=== PATIENT | female | born 1970 | race Two or more races ===

== ENCOUNTER 2019-02-17 16:42 | Emergency (ER) | payer OTHER ==
[~2019-02-17] VITALS: Ht 167.6 cm; Wt 97.5 kg
[2019-02-17 16:49] VITALS: BP 140/94
[2019-02-17] MEDS ORDERED: CHOL100044 PO (17:05)
[2019-02-17] MEDS ORDERED: ONDANSETRON HCL/PF - ER 4 MG/2 ML VIAL IV ONE (17:30)
[2019-02-17] MEDS ORDERED: IBUPROFEN 600 MG TABLET PO ONE ×2 (17:55→18:00)
[2019-02-17] MEDS ORDERED: ONDANSETRON HCL/PF 4 MG/2 ML VIAL ONE (17:55)
[2019-02-17] MEDS ORDERED: ONDANSETRON 4 MG TAB.RAPDIS ONE (17:58)
[2019-02-17] MEDS ORDERED: ONDANSETRON 4 MG TAB.RAPDIS SL ONE (18:30)
== END 2019-02-17 19:21 | disposition home or self-care (01) ==
LOC: ER 16:44
DX: S80.12XA Contusion of left lower leg, initial encounter (principal); S40.022A Contusion of left upper arm, initial encounter; S30.0XXA Contusion of lower back and pelvis, initial encounter; V49.59XA Passenger injured in collision with other motor vehicles in traffic accident, initial encounter; Y93.89 Activity, other specified; Y92.488 Other paved roadways as the place of occurrence of the external cause; Y99.8 Other external cause status
CPT/HCPCS: 71045; 99283; J2405; Q0162

== ENCOUNTER 2020-06-08 17:16 | Inpatient (IN) | payer OTHER ==
[~2020-06-08] VITALS: Ht 167.6 cm; Wt 110.2 kg
[~2020-06-08 17:16] MED LIST: CHOL100044 PO
[2020-06-08 18:21] LABS: BASOPHILS % (AUTO) 0.9 % (0.0-2.0); EOSINOPHILS % (AUTO) 2.1 % (0.0-6.0); HEMATOCRIT 35 % (33-45); HEMOGLOBIN 11.8 g/dL (11.5-14.8); LYMPHOCYTES # (AUTO) 1.3 /CMM (0.8-4.8); LYMPHOCYTES % (AUTO) 26.7 % (20.0-44.0); MEAN CORPUSCULAR HGB CONC 34 g/dl (31.0-36.0); MEAN CORPUSCULAR VOLUME 86 fL (82-100); MONOCYTES # (AUTO) 0.6 /CMM (0.1-1.30); MONOCYTES % (AUTO) 11.5 % (2.0-12.0); NEUTROPHILS # (AUTO) 2.8 /CMM (1.8-8.9); NEUTROPHILS % (AUTO) 58.8 % (43.0-81.0); PLATELET COUNT (AUTO) 195 /CMM (150-450); RED BLOOD CELL COUNT(AUTO) 4.05 MIL/uL (4.0-5.2); WHITE BLOOD COUNT (AUTO) 4.8 K/uL (4.3-11.0)
--- NOTE | 2020-06-08 18:25 | NUR ---
BIBFAMILY FROM HOME TO ER BED 7. AAOX4. NOT IN RESP DISTRESS, BREATHING EVEN AND UNLABORED. AMBULATORY. BROUGHT IN FOR CHEST PAIN THAT HAS BEEN GOING ON FOR THE PAST 2 DAYS. PT RATES THE PAIN 5/10 PRESSURE MID STERNAL RADIATING TO THE BACK. DAUGTHER REPORTS THAT SHE WAS DX WITH PNA 3 WEEKS AGO AND COVID POSITIVE X 15 DAYS. PT IS SATTING @ 99% ON RA. WAS AT THE BEDSIDE FOR EVAL. ORDERS RECEIVED, NOTED AND CARRIED OUT. IV LINE ESTABLISHED ON RFA 20G, BLOOD DRAWN AND GIVEN TO VOCATIONAL SERVICES SPECIALIST.
[2020-06-08 18:33] LABS: CALCIUM, SERUM 8.5 mg/dL (8.5-10.1); CREATININE 0.6 mg/dL (0.6-1.3); POTASSIUM 3.5 mmol/L (3.5-5.1)
--- NOTE | 2020-06-08 18:33 | NUR ---
Avila gracia in ED - 06/08/20 at 1834 by MOHIT RECEIVED A CALL FROM MILIND AT [facility] THAT PT IS MRSA POSOTIVE
[2020-06-08 18:46] LABS: ALBUMIN 3.4 g/dL (3.4-5.0); BILIRUBIN,TOTAL 0.5 mg/dL (0.2-1.0); TOTAL PROTEIN, SERUM 7.6 g/dL (6.4-8.2)
[2020-06-08] MEDS ORDERED: CEFEPIME 1 GM in IV D5W 50 ML IV SCH (19:00)
[2020-06-08] MEDS ORDERED: VANCOMYCIN 1 GM in IV D5W 250 ML IV ONE (19:00)
[2020-06-08] MEDS ORDERED: CEFEPIME 1 GM VIAL ONE (19:06)
[2020-06-08] MEDS ORDERED: IV NS 0.9% 250 ML IV ONE (19:18)
[2020-06-08] MEDS ORDERED: CT SWABBABLE VALVE TRANS SET 1 EA INFUS.SET MC ONE (19:18)
[2020-06-08] MEDS ORDERED: IOHEXOL-350 100 ML VIAL IV ONE (19:18)
[2020-06-08] MEDS ORDERED: VANCOMYCIN 1 GM VIAL ONE ×2 (20:15→22:27)
[2020-06-08 21:56] LABS: C-REACTIVE PROTEIN 8.8 mg/dL (0.0-0.9)
[2020-06-08] MEDS ORDERED: MAG HYDROX/AL HYDROX/SIMETH 30 ML UDC PO PRN (22:00)
[2020-06-08] MEDS ORDERED: ONDANSETRON HCL/PF 4 MG/2 ML VIAL IVP PRN (22:00)
[2020-06-08] MEDS ORDERED: MAGNESIUM HYDROXIDE 30 ML UDC PO PRN (22:00)
[2020-06-08] MEDS ORDERED: ACETAMINOPHEN 325 MG TABLET PO PRN (22:00)
[2020-06-08] MEDS ORDERED: HYDROCODONE/APAP 5/325MG TABLET PO PRN (22:00)
[2020-06-08] MEDS ORDERED: Z GUARD REMEDY 2 OZ OINT TP PRN (22:00)
[2020-06-08] MEDS ORDERED: ZOLPIDEM TARTRATE 5 MG TABLET PO PRN (22:00)
--- NOTE | 2020-06-08 22:01 | NUR ---
CANDELARIA, PT'S DAUGHTER
[2020-06-08] MEDS ORDERED: VANCOMYCIN 1 GM in IV D5W 250ml IV ONE (22:30)
[2020-06-08] MEDS ORDERED: ENOXAPARIN SODIUM 60 MG/0.6 ML DISP.SYRIN SQ ONE (22:33)
[2020-06-08] MEDS: ENOXAPARIN SODIUM 40 MG/0.4 ML DISP.SYRIN SQ SCH (22:35)
--- NOTE | 2020-06-08 22:50 | NUR ---
PT REPOSITIONED TO THE LEFT FOR COMFORT. PT HAS NO MEDICAL COMPLAINTS AT THIS TIME. WILL CONTINUE TO MONITOR PT
[2020-06-09] MEDS ORDERED: PIPERACILLIN /TAZOBACTAM 4.5 G in IV D5W 50 ML IV SCH ×2
--- NOTE | 2020-06-09 00:28 | NUR ---
SPOKE W/ [facility], PER PHARMACY, AMY TO GIVE ROCEPHIN 4.5 GM IV FOR 30 MINS NOW.
[2020-06-09] MEDS ORDERED: CEFTRIAXONE 500 MG VIAL ONE (00:30)
[2020-06-09] MEDS ORDERED: CEFTRIAXONE 1 G VIAL ONE ×2 (00:30→22:03)
[2020-06-09] MEDS ORDERED: CEFTRIAXONE 1GM BAG (ER ONLY) 50 ML IV ONE (00:30)
[2020-06-09] MEDS: PIPERACILLIN /TAZOBACTAM 4.5 G in IV D5W 50 ML IV SCH ×2 (01:07→07:15)
[2020-06-09] MEDS: IV NS 0.9% 1,000 ML IV PRN ×2 (04:00→22:28)
--- NOTE | 2020-06-09 04:54 | NUR ---
PT REPOSITIONED ON HER RIGHT SIDE FOR COMFORT. PT HAS NO MEDICAL COMPLAINTS AT THIS TIME
[2020-06-09 05:42] LABS: BASOPHILS % (AUTO) 0.4 % (0.0-2.0); EOSINOPHILS % (AUTO) 1.6 % (0.0-6.0); HEMATOCRIT 33 % (33-45); HEMOGLOBIN 11.3 g/dL (11.5-14.8); LYMPHOCYTES # (AUTO) 1.3 /CMM (0.8-4.8); LYMPHOCYTES % (AUTO) 26.3 % (20.0-44.0); MEAN CORPUSCULAR HGB CONC 34 g/dl (31.0-36.0); MEAN CORPUSCULAR VOLUME 86 fL (82-100); MONOCYTES # (AUTO) 0.6 /CMM (0.1-1.30); NEUTROPHILS # (AUTO) 2.9 /CMM (1.8-8.9); NEUTROPHILS % (AUTO) 59.7 % (43.0-81.0); PLATELET COUNT (AUTO) 177 /CMM (150-450); RED BLOOD CELL COUNT(AUTO) 3.89 MIL/uL (4.0-5.2); WHITE BLOOD COUNT (AUTO) 4.8 K/uL (4.3-11.0)
[2020-06-09 05:58] LABS: D-DIMER 0.83 mg/L(FEU (0.17-0.50)
[2020-06-09 06:01] LABS: CALCIUM, SERUM 8.2 mg/dL (8.5-10.1); CREATININE 0.7 mg/dL (0.6-1.3); MAGNESIUM 2.1 mg/dL (1.8-2.4); PHOSPHORUS 2.9 mg/dL (2.5-4.9); POTASSIUM 3.5 mmol/L (3.5-5.1)
--- NOTE | 2020-06-09 06:13 | NUR ---
PT REPOSITIONED ON HER LEFT SIDE FOR COMFORT. VSS. NAD NOTED.
[2020-06-09 06:15] LABS: THYROID STIMULATING HORMONE 0.642 uIU/mL (0.358-3.74)
--- NOTE | 2020-06-09 07:15 | NUR ---
FRANCESCO DONALDSON CHANGED TIME TO 0900AM.
[2020-06-09] MEDS ORDERED: DEXAMETHASONE SOD PHOSPHATE 6 MG in IV D5W 50 ML IV SCH (09:00)
[2020-06-09] MEDS: DEXAMETHASONE SOD PHOSPHATE 10 MG/ML VIAL IV SCH (09:05)
[2020-06-09] MEDS: CHOLECALCIFEROL 1,000 UNIT TABLET (VIT D3) PO SCH (09:06)
[2020-06-09] MEDS: PIPERACILLIN /TAZOBACTAM 3.375 G in IV D5W 100 ML IV SCH ×2 (09:20→17:00)
[2020-06-09] MEDS ORDERED: VANCOMYCIN 1.5 GM in IV D5W 500 ML IV SCH (16:00)
--- NOTE | 2020-06-09 19:16 | NUR ---
ASSUMED CARE. PT SITTING UP IN BED TALKING TO DAUGHTER. PT DENIES PAIN OR DISCOMFORT AT THIS TIME, NO ACUTE DISTRESS NOTED, RESP EVEN AND UNLABORED. CALL LIGHT WITHIN REACH. WILL CONTINUE TO MONITOR PT CLOSELY.
--- NOTE | 2020-06-09 20:29 | NUR ---
Avila gracia in EDM - 06/09/20 at 2028 by RENU REPORT CALLED TO DESHAWN SLOAN WILL TRANSPORT PT VIA ACLS PROTOCOL.
--- NOTE | 2020-06-09 20:29 | NUR ---
REPORT CALLED TO RADIOLOGIC TECHNOLOGY TEACHERRIKKI MONTANO. WILL TRANSPORT PT VIA ACLS PROTOCOL.
--- NOTE | 2020-06-09 20:40 | NUR ---
ENVIRONMENTAL ENGINEERING PROFESSOR OPENING NOTES RECEIVED PATIENT FROM ER VIA TOO, ALERT AND ORIENTED X 4 AMBULATORY. VIETNAMESE SPEAKING VERBALLY RESPONSIVE AND ABLE TO FOLLOW DIRECTIONS. BREATHING REGULAR AND UNLABORED ON ROOM AIR, LATEST SPO2 98%. LEFT HAND G22 IV LINE INTACT AND PATENT, FLUSHING WELL WITH NO BLEEDING OR S/S OF INFILTRATION NOTED. BODY ASSESSMENT DONE, SKIN INTACT CLEAN AND DRY. ATTACHED ON CARDIAC MONITORING WITH NORMAL SINUS RHYTHM AT 80bmp. DENIES SUICIDAL IDEATION OR PAIN/DISCOMFORT AT THIS TIME. PATIENT DOESN'T HAVE AN ADVANCE DIRECTIVES AND WISHED TO BE FULL CODE. BED LOW AND LOCKED ON SEMI FOWLERS POSITION. CALL LIGHT IN REACH. MAINTAINED ON ISOLATION FOR COVID19, PROPER HAND WASHING AND ISOLATION PRECAUTIONS OBSERVED. WILL CONTINUE TO MONITOR.
[2020-06-09 20:45] VITALS: BP 147/81
[2020-06-09] MEDS: ENOXAPARIN SODIUM 40 MG/0.4 ML DISP.SYRIN SQ SCH (21:40)
[2020-06-09] MEDS: CEFTRIAXONE 1 G in IV D5W 50 ML IV SCH (22:17)
[2020-06-10] VITALS: BP 137/85
[2020-06-10 04:00] VITALS: BP 115/74
--- NOTE | 2020-06-10 06:45 | NUR ---
ELECTRIC MOTOR REPAIR SUPERVISOR CLOSING NOTES PATIENT IN BED, ALERT AND ORIENTED X 4. AFEBRILE WITH NO S/S OF DISTRESS OBSERVED. LEFT HAND G22 IV LINE PATENT AND FLUSHING WELL. MAINTAINED ON CARDIAC MONITORING WITH NORMAL SINUS RHYTHM AT 89bmp. NO COMPLAINTS OF PAIN/DISCOMFORT REPORTED AT THIS TIME. BED LOW AND LOCKED ON SEMI FOWLERS POSITION. CALL LIGHT IN REACH. WILL ENDORSE TO MORNING SHIFT FOR TONY.
[2020-06-10 07:25] LABS: BASOPHILS % (AUTO) 0.1 % (0.0-2.0); HEMATOCRIT 33 % (33-45); LYMPHOCYTES # (AUTO) 0.8 /CMM (0.8-4.8); LYMPHOCYTES % (AUTO) 14.8 % (20.0-44.0); MEAN CORPUSCULAR HGB CONC 34 g/dl (31.0-36.0); MEAN CORPUSCULAR VOLUME 86 fL (82-100); MONOCYTES # (AUTO) 0.4 /CMM (0.1-1.30); MONOCYTES % (AUTO) 8.2 % (2.0-12.0); NEUTROPHILS # (AUTO) 4.1 /CMM (1.8-8.9); NEUTROPHILS % (AUTO) 76.9 % (43.0-81.0); PLATELET COUNT (AUTO) 214 /CMM (150-450); WHITE BLOOD COUNT (AUTO) 5.3 K/uL (4.3-11.0)
--- NOTE | 2020-06-10 07:30 | NUR ---
TELE/RN OPENING NOTES RECEIVED PATIENT IN BED. AFEBRILE. A/O X4/. AMBULATORY. NO SIGNS OF RESPIRATORY DISTRESS. IV ON L HAND G22 INTACT, NS @75 ML/HR. TELE READING NSR. SAFETY PRECAUTIONS APPLIED. BED IN LOWEST POSITION, LOCKED. SIDE RAILS UP X 2. CALL LIGHT WITHIN REACH. WILL CONTINUE TO MONITOR.
--- NOTE | 2020-06-10 07:40 | NUR ---
FORKLIFT SUPERVISOR OPENING NOTES PATIENT A/O X4. WITH NO SIGNS OF DISTRESS ROOM AIR. IV ON L HAND #22G INTACT, NS @75 ML/HR. TELE READING NSR. SAFETY PRECAUTIONS APPLIED. BED IN LOWEST POSITION, LOCKED. SIDE RAILS UP X 2. CALL LIGHT WITHIN REACH. WILL CONTINUE TO MONITOR.
[2020-06-10 07:54] LABS: CALCIUM, SERUM 8.8 mg/dL (8.5-10.1); CREATININE 0.7 mg/dL (0.6-1.3); POTASSIUM 3.9 mmol/L (3.5-5.1)
[2020-06-10 08:00] VITALS: BP 118/76
[2020-06-10] MEDS: CHOLECALCIFEROL 1,000 UNIT TABLET (VIT D3) PO SCH (10:47)
[2020-06-10] MEDS: DEXAMETHASONE SOD PHOSPHATE 10 MG/ML VIAL IV SCH (10:48)
[2020-06-10 12:00] VITALS: BP 126/74
[2020-06-10 16:00] VITALS: BP 137/70
--- NOTE | 2020-06-10 19:25 | NUR ---
LOZENGE DOUGH MIXER OPENING NOTES PATIENT AWAKE IN BED. A/OX4. PRIMARY LANGUAGE KITTITIAN; TRANSLATION PROVIDED BY DAUGHTER YOU VIA PHONE. ON RA; NO S/S OF ACUTE RESPIRATORY DISTRESS; BREATHING IS EVEN AND UNLABORED. NO C/O PAIN. TELE MONITOR READING SINUS RHYTHM. IV PRESESNT ON LEFT HAND, SIZE 22, INTACT & PATENT WITH NS RUNNING AT 75 ML/HR. CONTACT/DROPLET PRECAUTIONS IN PLACE FOR COVID 19. SAFETY MEASURES IN PLACE AND PATIENT'S NEEDS MET. BED LOCKED, SIDE RAILS X2, CALL LIGHT WITHIN REACH. WILL CONTINUE TO MONITOR.
--- NOTE | 2020-06-10 19:52 | NUR ---
RESIN MIXER CLOSING NOTES PATIENT A/O X4. WITH NO SIGNS OF DISTRESS ROOM AIR. IV ON L HAND #22G INTACT, NS @75 ML/HR. TELE READING NSR. PATIENT KEPT CLEAN AND DRY. ALL NEEDS, CARE, TREATMENT,AND MEDICATIONS WERE ADMINISTERED ANTICIPATED PER ORDER. SAFETY MEASURES ARE APPLIED, BED IS IN LOW POSITION SIDE RAILS UP X 2. CALL LIGHT WITHIN REACH WILL ENDORSE TO THE DIRECTOR SALES SUPPORT NURSE.
[2020-06-10 20:00] VITALS: BP 117/59
[2020-06-10] MEDS: ENOXAPARIN SODIUM 40 MG/0.4 ML DISP.SYRIN SQ SCH (21:19)
[2020-06-10] MEDS: CEFTRIAXONE 1 G in IV D5W 50 ML IV SCH (21:19)
[2020-06-11] VITALS: BP 134/72
[2020-06-11 04:00] VITALS: BP 134/71
[2020-06-11 06:00] VITALS: BP 134/71
[2020-06-11 07:07] LABS: BASOPHILS % (AUTO) 0.1 % (0.0-2.0); EOSINOPHILS % (AUTO) 0.1 % (0.0-6.0); HEMATOCRIT 34 % (33-45); HEMOGLOBIN 11.3 g/dL (11.5-14.8); LYMPHOCYTES # (AUTO) 1.2 /CMM (0.8-4.8); LYMPHOCYTES % (AUTO) 17.8 % (20.0-44.0); MEAN CORPUSCULAR HGB CONC 33 g/dl (31.0-36.0); MEAN CORPUSCULAR VOLUME 87 fL (82-100); MONOCYTES # (AUTO) 0.4 /CMM (0.1-1.30); MONOCYTES % (AUTO) 5.6 % (2.0-12.0); NEUTROPHILS # (AUTO) 5.2 /CMM (1.8-8.9); NEUTROPHILS % (AUTO) 76.4 % (43.0-81.0); PLATELET COUNT (AUTO) 225 /CMM (150-450); RED BLOOD CELL COUNT(AUTO) 3.89 MIL/uL (4.0-5.2); WHITE BLOOD COUNT (AUTO) 6.8 K/uL (4.3-11.0)
--- NOTE | 2020-06-11 07:11 | NUR ---
CUSTOMS COMPLIANCE DIRECTOR CLOSING NOTES PATIENT SLEEPING, AWAKENS TO NAME. A/OX4. ON RA; NO S/S OF ACUTE RESPIRATORY DISTRESS; BREATHING IS EVEN AND UNLABORED. NO S/S PAIN NOTED. TELE MONITOR READING SINUS RHYTHM. IV PRESESNT ON LEFT HAND, SIZE 22, INTACT & PATENT, HEP LOCKED. SAFETY MEASURES IN PLACE AND PATIENT'S NEEDS MET. BED LOCKED, SIDE RAILS X2, CALL LIGHT WITHIN REACH. WILL ENDORSE TO DAY SHIFT RN PLAN OF CARE.
[2020-06-11 07:31] LABS: CALCIUM, SERUM 8.6 mg/dL (8.5-10.1); CREATININE 0.6 mg/dL (0.6-1.3); MAGNESIUM 2.3 mg/dL (1.8-2.4)
--- NOTE | 2020-06-11 07:36 | NUR ---
PAPER PRODUCTS MACHINE OPERATOR OPENING NOTES RECEIVED PATIENT RESTING IN BED. A/OX4. PRIMARY LANGUAGE ARABIC WITH SOME LIMITED OCCITAN, TRANSLATION PROVIDED BY DAUGHTER YOU VIA PHONE. PATIENT IS ON ON RA WITH O2 SAT 97-98% ON RA. NO S/S OF ACUTE RESPIRATORY DISTRESS; BREATHING IS EVEN AND UNLABORED. NO C/O PAIN OR DISCOMFORT AT THIS TIME. TELE MONITOR READING SINUS RHYTHM. IV PRESESNT ON LEFT HAND #22, PATENT AND INTACT INFUSING NS AT 75 ML/HR. CONTACT/DROPLET PRECAUTIONS IN PLACE FOR COVID 19. ALL SAFETY MEASURES IN PLACE, PATIENT'S NEEDS MET. BED IS AT LOW POSITION AND LOCKED WITH SIDE RAILS UP X2 AND CALL LIGHT WITHIN REACH. WILL CONTINUE TO MONITOR.
[2020-06-11 08:00] VITALS: BP 123/68
[2020-06-11] MEDS ORDERED: DEXA4TAB PO (09:13)
[2020-06-11] MEDS ORDERED: LEVO500T90 PO (09:15)
[2020-06-11] MEDS: DEXAMETHASONE SOD PHOSPHATE 10 MG/ML VIAL IV SCH (09:36)
[2020-06-11] MEDS: CHOLECALCIFEROL 1,000 UNIT TABLET (VIT D3) PO SCH (09:36)
[2020-06-11 12:00] VITALS: BP 120/72
--- NOTE | 2020-06-11 17:42 | NUR ---
DISCHARGE NOTES DISCHARGE ORDER RECEIVED FROM DR. WINSTON. PATIENT IN STABLE CONDITION FOR DC. PATIENT AND FAMILY INFORMED OF DISCHARGE TO HOME/SELF-CARE. MEDICATION DISCHARGE INSTRUCTIONS AND EDUCATION PROVIDED TO PATIENT. INSTRUCTED PATIENT AND FAMILY ON COVID QUARINTINE, HAND HYGINE AND PROPER MASK WEARING. PATIENT AND FAMILY VERBALIZED UNDERSTANDING. BELONGINGS CHECKED, AND SIGNED. SKIN CHECK DONE, SKIN INTACT. NO FC IN PLACE, IV TO LT HAND REMOVED, TELE MONITOR REMOVED AND PLACED IN NURSES STATION. PATIENT VOIDED. PATIENT WAS TAKEN TO LOBBY VIA WHERE FAMILY IS WAITING FOR PATIENT. PATIENT LEFT HOSPITAL IN STABLE CONDITION ACCOMPANIED BY FAMILY VIA PRIVATE CAR.
== END 2020-06-11 17:50 | disposition home or self-care (01) | DRG 137 ==
LOC: ER 17:20 → TRANSITION 22:02 → MEDSG2 06-09 20:05 → TELE2 06-09 21:30
PROVIDERS: ATTEND Nurse Practitioner Acute Care
DX: U07.1 COVID-19 (principal); J12.89 Other viral pneumonia; J96.01 Acute respiratory failure with hypoxia; E66.9 Obesity, unspecified; Z68.37 Body mass index [BMI] 37.0-37.9, adult; R73.9 Hyperglycemia, unspecified
CPT/HCPCS: 36415; 71045-TC; 80048-TC; 80053-TC; 80061-TC; 82550-TC; 82728-TC; 83615-TC; 83735-TC; 83880; 84100-TC; 84443-TC; 85025-TC; 85378-TC; 85385-TC; 86140-TC; 87040-TC; 87081-TC; C9803; G0378; J0692; J0696; J1100; J1650; J2405; J2543; J3370; J7030; J7050; J7060; Q9967; U0003

== ENCOUNTER 2022-05-09 14:09 | Emergency (ER) | payer OTHER ==
[~2022-05-09] VITALS: Ht 167.6 cm; Wt 106.6 kg
[~2022-05-09 14:09] MED LIST changes: +DEXA4TAB PO; +LEVO500T90 PO
--- NOTE | 2022-05-09 14:10 | NUR ---
BIBRA 102 FR HOME FOR PALPITATION AND CHEST PAIN RADIATES TO HEAD, NECK, SHOULDER AND ARM, GIVEN 325ASA 0.4MG NITRO, TOOK .1 CLONIDINE NOT PRESCRIBED. PLACED ON BED, AAOX4, BREATHING EVEN AND UNLABORED SATURATING AT 97%, ATTACHED TO MONITOR SHOWS SINUS RHYTHM PA- 90, PAINFREE AT MOMENT.
--- NOTE | 2022-05-09 15:30 | NUR ---
COMMERCIAL REAL ESTATE UNDERWRITER AT BEDSIDE
[2022-05-09 15:53] LABS: BASOPHILS % (AUTO) 0.5 % (0.0-2.0); EOSINOPHILS % (AUTO) 1.1 % (0.0-6.0); HEMATOCRIT 38 % (33-45); HEMOGLOBIN 12.7 g/dL (11.5-14.8); LYMPHOCYTES # (AUTO) 1.2 K/uL (0.8-4.8); LYMPHOCYTES % (AUTO) 23.1 % (20.0-44.0); MEAN CORPUSCULAR HGB CONC 33 g/dl (31.0-36.0); MEAN CORPUSCULAR VOLUME 87 fL (82-100); MONOCYTES # (AUTO) 0.3 K/uL (0.1-1.30); MONOCYTES % (AUTO) 6.6 % (2.0-12.0); NEUTROPHILS # (AUTO) 3.6 K/uL (1.8-8.9); NEUTROPHILS % (AUTO) 68.7 % (43.0-81.0); PLATELET COUNT (AUTO) 192 K/uL (150-450); RED BLOOD CELL COUNT(AUTO) 4.38 MIL/uL (4.0-5.2); WHITE BLOOD COUNT (AUTO) 5.2 K/uL (4.3-11.0)
--- NOTE | 2022-05-09 16:00 | NUR ---
X-RAY TECH AT BEDSIDE
[2022-05-09 16:14] LABS: CARBON DIOXIDE 27 mmol/L (21-32); CHLORIDE 117 mmol/L (98-107); CREATININE 0.7 mg/dL (0.6-1.3); GLUCOSE 119 mg/dL (74-106); POTASSIUM 4.4 mmol/L (3.5-5.1); SODIUM SERUM 142 mmol/L (136-145); UREA NITROGEN, BLOOD 17 mg/dL (7-18)
[2022-05-09 16:34] LABS: ALANINE AMINOTRANSFERASE 18 U/L (12-78); ALBUMIN 3.9 g/dL (3.4-5.0); ALKALINE PHOSPHATASE 70 U/L (46-116); ASPARTATE AMINOTRANSFERASE 21 U/L (15-37); BILIRUBIN,DIRECT 0.1 mg/dL (0.0-0.2); BILIRUBIN,TOTAL 0.3 mg/dL (0.2-1.0); TOTAL PROTEIN, SERUM 7.2 g/dL (6.4-8.2)
--- NOTE | 2022-05-09 16:51 | NUR ---
IV removed. Catheter intact and site benign. Pressure and 4x4 applied to site. No bleeding noted.Patient discharged to home in stable condition. Written and verbal after care instructions given. Patient verbalizes understanding of instruction.
[2022-05-09 16:54] VITALS: BP 108/74
== END 2022-05-09 16:54 | disposition home or self-care (01) ==
LOC: ER 14:13
DX: R00.2 Palpitations (principal); I10 Essential (primary) hypertension; I47.1 Supraventricular tachycardia
CPT/HCPCS: 36415; 71045-TC; 80048-TC; 80076-TC; 83880; 84484-TC; 85025-TC

== ENCOUNTER 2024-03-05 04:42 | Emergency (ER) | payer OTHER ==
[~2024-03-05] VITALS: Ht 167.6 cm; Wt 99.8 kg
[2024-03-05] MEDS: IV NS 0.9% 1,000 ML BAG IV ONE (06:17)
[2024-03-05 06:19] LABS: BASOPHILS % (AUTO) 0.3 % (0.0-2.0); EOSINOPHILS # (AUTO) 0.1 K/uL (0.0-0.7); EOSINOPHILS % (AUTO) 1.2 % (0.0-6.0); HEMATOCRIT 41 % (33-45); HEMOGLOBIN 13.8 g/dL (11.5-14.8); LYMPHOCYTES # (AUTO) 1.5 K/uL (0.8-4.8); LYMPHOCYTES % (AUTO) 18.2 % (20.0-44.0); MEAN CORPUSCULAR HEMOGLOBIN 29 PG (26.0-33.0); MEAN CORPUSCULAR HGB CONC 33 g/dl (31.0-36.0); MEAN CORPUSCULAR VOLUME 88 fL (82-100); MONOCYTES # (AUTO) 0.7 K/uL (0.1-1.30); MONOCYTES % (AUTO) 8.7 % (2.0-12.0); NEUTROPHILS # (AUTO) 5.7 K/uL (1.8-8.9); NEUTROPHILS % (AUTO) 71.6 % (43.0-81.0); PLATELET COUNT (AUTO) 218 K/uL (150-450); RED BLOOD CELL COUNT(AUTO) 4.69 MIL/uL (4.0-5.2); RED CELL DISTRIBUTION WIDTH 13.5 % (11.5-15.0)
[2024-03-05 06:27] LABS: CALCIUM, SERUM 9.5 mg/dL (8.5-10.1); CREATININE 0.8 mg/dL (0.6-1.3)
[2024-03-05 06:33] LABS: ALBUMIN 4.3 g/dL (3.4-5.0); BILIRUBIN,TOTAL 0.7 mg/dL (0.2-1.0); TOTAL PROTEIN, SERUM 7.8 g/dL (6.4-8.2)
[2024-03-05 06:56] LABS: APPEARANCE,URINE SLIGHTLY CLOUDY (CLEAR); BILIRUBIN,URINE 1+ (NEGATIVE); BLOOD, URINE TRACE-INTA Ery/uL (NEGATIVE); COLOR,URINE YELLOW (YELLOW); KETONES,URINE NEGATIVE (NEGATIVE); LEUKOCYTE ESTERASE ,URINE 1+ (NEGATIVE); NITRITE, URINE NEGATIVE (NEGATIVE); PROTEIN,URINE NEGATIVE (NEGATIVE); UGLUCOSE NEGATIVE (NEGATIVE); UROBILINOGEN,URINE 0.2 EU/dL (0.2)
[2024-03-05 06:57] LABS: ADD URINE CULTURE YES; BACTERIA,URINE Few /HPF (None Seen); SQUAMOUS EPITHELIAL CELL,UR Rare /HPF (None Seen)
[2024-03-05] MEDS ORDERED: FAMO-131 PO (06:58)
[2024-03-05] MEDS ORDERED: LOPE2CAP40 PO (06:58)
[2024-03-05] MEDS ORDERED: CIPR-262 PO (07:14)
[2024-03-05 07:20] VITALS: BP 128/80; TEMP 98.6; O2SAT 99
== END 2024-03-05 08:01 | disposition home or self-care (01) ==
LOC: ER 04:49
DX: R10.9 Unspecified abdominal pain (principal); R11.2 Nausea with vomiting, unspecified; R19.7 Diarrhea, unspecified; I10 Essential (primary) hypertension; I49.9 Cardiac arrhythmia, unspecified
CPT/HCPCS: 99283; 96360; 85025; 87086; 83690; 81001; 36415; 80053; J7030